=== PATIENT | female | born 1985 | race Caucasian/White ===

== ENCOUNTER 2018-03-22 02:40 | Emergency (ER) | payer OTHER ==
[~2018-03-22] VITALS: Ht 160 cm; Wt 75.0 kg
[2018-03-22 02:44] VITALS: BP 126/75; PULSE 70; RESP 18; TEMP 97.7; O2SAT 100
[2018-03-22] MEDS ORDERED: DICL75TA PO (03:06)
--- NOTE | 2018-03-22 03:09 | PD ---
HPI Chief Complaint: Injury Time Seen by Provider: 03:05 Travel History International Travel<30 days: No Contact w/Intl Traveler<30days: No Traveled to known affect area: No History of Present Illness HPI This is a 33-year-old female who presents for evaluation of right shoulder pain. Symptoms started yesterday morning after work. 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 She reports that the pain is a sharp pain which is worse with movement of the shoulder and worse when at work. She tried using Tylenol but the pain persisted which prompted evaluation. She denies any numbness or tingling or weakness. She denies any chest pain, shortness of breath, neck pain, headache. She has no other complaints at this time. [facility] Past Medical History Medical History: Denies Significant Hx Diminished Hearing: No Tetanus Vaccination: Unknown Influenza Vaccination: No ?: Not LMP: 03/13/2018 Past Surgical History Surgical History: No Previous Surgery Social History Alcohol Use: No Tobacco Use: No Substance Use: No Allergies-Medications (Allergen,Severity, Reaction): Coded Allergies: No Known Allergies (Unverified , 03/22/18) Review of Systems Except as stated in HPI: all other systems reviewed are Neg Physical Exam Narrative GENERAL: Well developed well-nourished female no acute distress SKIN: Warm and dry. No bruising or soft tissue swelling HEAD: Atraumatic. Normocephalic. EYES: Pupils equal and round. No scleral icterus. No injection or drainage. ENT: No nasal bleeding or discharge. Mucous membranes pink and moist. NECK: Trachea midline. No JVD. CARDIOVASCULAR: Regular rate and rhythm. No murmur appreciated. RESPIRATORY: No accessory muscle use. Clear to auscultation. Breath sounds equal bilaterally. GASTROINTESTINAL: Abdomen soft, non-tender, nondistended. Hepatic and splenic margins not palpable. MUSCULOSKELETAL: No obvious deformities. No reproducible tenderness to palpation of the neck, shoulders. Patient maintains full range of motion of the upper extremities. She has pain with abduction, internal and external rotation of the right shoulder against resistance. NEUROLOGICAL: Awake and alert. No obvious cranial nerve deficits. Motor grossly within normal limits. Normal speech. Data Data Last Documented VS Vital Signs Date Time Temp Pulse Resp B/P (MAP) Pulse Ox O2 Delivery O2 Flow Rate FiO2 03/22/18 02:44 97.7 70 18 126/75 (92) 100 Orders Orders Ed Discharge Order (03/22/18 03:05) Ibuprofen (Motrin) (03/22/18 03:15) MDM Medical Decision Making Medical Screen Exam Complete: Yes Emergency Medical Condition: Yes Medical Record Reviewed: Yes Differential Diagnosis Shoulder strain, rotator cuff impingement, rotator cuff tear, acromial clavicular separation Narrative Course History and examination are consistent with shoulder strain. The patient will be discharged with a short course of NSAIDs. She will be given a note for work. Diagnosis Primary Impression: Right shoulder strain Departure Forms: Tests/Procedures, Work Release Special Instructions: Ms. Kearney is suffering from a right shoulder strain. She should refrain from any repetitive motion activities or heavy lifting utilizing the right shoulder until cleared by her primary care physician. Additional Instructions: Medication as needed. Avoid activities that aggravate the pain. Ice the area several times a day 15 minutes at a time. Follow-up with primary care physician in 2 weeks. Return for any emergent medical conditions. Med/Other Pt SpecificInfo: Prescription(s) given Scripts Diclofenac Sodium DR (Diclofenac Sodium DR) 75 Mg Tabdr 75 MG PO BID for 10 Days, #28 TAB 0 Refills Prov: Natividad Helms DO 03/22/18 Disposition: 01 DISCHARGE HOME Condition: Stable Ant Harris Mar 22, 2018 03:09
[2018-03-22] MEDS ORDERED: IBUPROFEN 800 MG TAB PO ONE (03:15)
== END 2018-03-22 03:43 | disposition home or self-care (01) ==
LOC: NEPD 02:40
DX: S46.911A Strain of unspecified muscle, fascia and tendon at shoulder and upper arm level, right arm, initial encounter (principal); X50.3XXA Overexertion from repetitive movements, initial encounter; Y99.0 Civilian activity done for income or pay
CPT/HCPCS: 99283